=== PATIENT | male | born 1950 | race Caucasian/White ===

== ENCOUNTER 2022-05-07 14:32 | Emergency (ER) | payer OTHER, SELFPAY ==
[2022-05-07 14:47] VITALS: BP 132/86; PULSE 69; RESP 18; TEMP 36.7; O2SAT 98; BMI 26.6
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
--- NOTE | 2022-05-07 15:03 | CT_ITS ---
Final Report Patient: YISSEL MURGUIA Facility:?[facility] Patient ID:?[id number] Site Patient ID:?[id number]. Site :?[id number] Study:?CT Head W/O-05/07/2022 3:22:15 PM Ordering Physician:Elena Stack Final Report: INDICATION: Head injury. TECHNIQUE: CT head without contrast. COMPARISON: None. FINDINGS: CSF spaces: Within normal limits for age. Brain parenchyma and extra-axial spaces: The jane-white differentiation is normal. No sign of mass, hemorrhage, or midline shift. No extra-axial fluid collection. Hyperdensity along the anterior aspect of the falx appears to be due to calcification as opposed to the subdural blood. Skull base and calvarium: Right mastoid effusion. Left mastoid is clear. Paranasal sinuses are clear. The visualized orbits are grossly unremarkable. No skull fractures. Questionable incompletely visualized nondisplaced fracture of the right zygomatic arch. IMPRESSION: 1. No intracranial hemorrhage or evidence of other acute intracranial abnormality. Hyperdensity along the anterior falx appears to be due to calcification as opposed to subdural blood. No midline shift or mass effect. 2. Right mastoid effusion with no discernible skullbase fracture. 3. Questionable incompletely visualized nondisplaced fracture of the right zygomatic arch. Please note that all CT scans at this facility use dose modulation, iterative reconstruction, and/or weight-based dosing when appropriate to reduce radiation dose to as low as reasonably achievable. Dictated by Brandan Pradhan MD @ 05/07/2022 3:53:19 PM (Electronic Signature)
--- NOTE | 2022-05-07 15:13 | ED.NURSE ---
Patient to radiology.
[2022-05-07] MEDS: LACTATED RINGERS 1000 ML IV (16:02)
[2022-05-07 16:25] LABS: Troponin, Point-of-Care* 0.01 ng/ml (0.01-0.04)
[2022-05-07 17:07] LABS: Chloride* 107 mmol/L (96-114); Sodium* 138 mmol/L (135-149)
[2022-05-07 17:10] LABS: Creatinine* 0.8 mg/dL (0.5-1.5); Est. Creatinine Clearance* 69.72
[2022-05-07 17:11] LABS: Blood Urea Nitrogen* 14 mg/dL (7-30); Calcium* 8.8 mg/dL (8.4-10.6); Carbon Dioxide* 25 mmol/L (20-32); Glucose* 108 mg/dL (60-115)
--- NOTE | 2022-05-07 17:25 | ED.NURSE ---
EKG cancelled by
[2022-05-07 17:35] VITALS: BP 118/80; PULSE 60; RESP 18
== END 2022-05-07 17:35 | disposition home or self-care (01) ==
LOC: ED 16:37
PROVIDERS: Emergency Provider Family Medicine; PCP Surgery
DX: S06.0X0A Concussion without loss of consciousness, initial encounter (principal); W22.8XXA Striking against or struck by other objects, initial encounter
CPT/HCPCS: 36415; 70450; 80048; 84484; 99283; 99285; J7120

== ENCOUNTER 2022-07-02 12:49 | Outpatient (RCR) | payer OTHER, MEDICARE, SELFPAY | END 2023-03-04 13:42 | disposition home or self-care (01) | PROVIDERS: PCP Surgery; Visit Provider Surgery | DX: S06.0X0D Concussion without loss of consciousness, subsequent encounter (principal); Z51.89 Encounter for other specified aftercare | CPT/HCPCS: 97162 ==

== ENCOUNTER 2023-01-20 07:54 | Day surgery (SDC) | payer MEDICARE, SELFPAY ==
[2023-01-20] VITALS (22 sets, daily range): BP systolic 110–154; BP diastolic 67–94; PULSE 54–81; RESP 14–18; TEMP 36.2–37.5; O2SAT 93–99; BMI 27.4
[2023-01-20] MEDS: LACTATED RINGERS 1000 ML 1,000 ML 100 ML IV (07:40)
--- NOTE | 2023-01-20 08:21 | CRLHL7_ITS ---
For Patients: As a result of the Cures Act, medical imaging exams and procedure reports are released immediately into your electronic medical record. You may view this report before your referring provider. If you have questions, please contact your health care provider. Indication: POST OP Technique: Two views right knee Findings/Impression: Hardware from a right total knee arthroplasty is in satisfactory position. Bone alignment is normal. No sign of acute fracture. Postop changes are within normal limits. Dictated by Hao Rosario MD @ 01/20/2023 11:41:43 AM (Electronically Signed)
[2023-01-20] MEDS: ACETAMINOPHEN 500 MG TABLET 1000 MG PO ×3 (08:22→23:13)
[2023-01-20] MEDS: OXYCODONE (CR) 10 MG TAB.ER.12H PO (08:23)
[2023-01-20] MEDS: CELECOXIB 200 MG CAPSULE PO (08:23)
[2023-01-20] MEDS: MIDAZOLAM HCL 1 MG/ML inj IVP (09:01)
[2023-01-20] MEDS: fentaNYL 100 MCG/2 ML inj IVP (09:01)
--- NOTE | 2023-01-20 09:20 | SUR.PREOP ---
TIME?OUT:?0900 PT/RN/MDA?VERIFICATION?OF?SURGICAL?SITE,?PROCEDURE,?AND?CONSENT OBTAINED?PRIOR?TO?INVASIVE?PROCEDURE.
--- NOTE | 2023-01-20 10:50 | PM.ORPRC ---
Procedure Note Date of procedure: 01/20/23 Procedure: PREOPERATIVE DIAGNOSIS: 1. Right knee osteoarthritis, primary, severe POSTOPERATIVE DIAGNOSIS: 1. Right knee osteoarthritis, primary, severe PROCEDURE: 1. Right total knee arthroplasty SURGEON: Lizandro Walker MD. LINE RUNNER: Roberto HARPER - Of note, a skilled assistant to the vice president was critical for this case to aid in patient positioning, tissue retraction, limb manipulation/positioning, and closure. ANESTHESIA: Spinal anesthetic IMPLANTS: DePuy J&J all cemented TKA - Attune PS femur size 5 regular, size 6 tibia, 6 mm poly spacer, 38 mm patella TOURNIQUET: 90 min at 300 torr EBL: 50 ml COMPLICATIONS: None evident INDICATIONS: The patient is a pleasant 72-year-old male who has experienced severe right knee pain and difficulty bearing weight. Workup included x-rays which revealed severe osteoarthrosis in the knee. Given the deformity, the dysfunction, and the pain, as well as the failure of nonoperative management, recommendation was made for surgery. FINDINGS: Severe broad full-thickness chondral loss throughout the medial compartment with subchondral dense bone. Significant chondromalacia patellofemoral and to a lesser degree lateral compartment as well. Tricompartmental osteophytes. Moderate effusion upon entering the joint. DESCRIPTION OF PROCEDURE: Following a thorough discussion of risks, benefits, and alternatives consent was obtained and the right knee was marked. The patient was brought to the operating room and placed supine on the operating table. Induction of anesthesia was undertaken. 1 g IV vancomycin and 1 g tranexamic acid was administered within 1 hr of incision preoperatively. Proper time-out was performed identifying proper patient, site, procedure. The operative extremity was prepped and draped in the appropriate sterile fashion using ChloraPrep after the patient was positioned supine with all bony prominences well padded. A longitudinal, anterior, midline skin incision was made starting approximately 3cm proximal to the superior pole of the patella and advanced distal to the tibial tubercle. A median parapatellar arthrotomy was created. A medial subperiosteal sleeve was created with knife, grider elevator and curved osteotome. The retropatellar fatpad was resected and the synovium in the suprapatellar pouch excised to visualize the anterior femoral cortex. Femoral preparation was performed via an intramedullary guide. Step drill allowed access into the femoral canal. The distal cutting guide was placed with 5? of valgus and 10 mm cut on the distal femur. Femur was sized using a anterior referencing guide in 3? of external rotation. This found have a best fit with the sizing noted above. The 4 in 1 cutting block was then placed, and the distal femur shaped accordingly. The box cut was then created and the trial implant inserted to confirm appropriate fit. We turned our attention to the proximal tibia. Extramedullary guide was utilized for cutting with the goal of being 90 degree cut from the mechanical axis of the tibia in the varus/valgus plane utilizing tibial crest as the primary alignment. Initially a 2 mm resection was performed from the medial tibial plateau. Ultimately, balancing was achieved in both flexion and extension in both varus and valgus. The knee was able to achieve full extension as well comfortably. The patella was initially measured and found have a thickness of 24 mm. It was resected back to approximately 14.5 mm. It was sized to be a best fit with as noted above. This was drilled, trial placed. All trials were placed and found to have an excellent stability and balance. At this stage, trial implants were removed, the knee was thoroughly irrigated with normal saline, and the cement was mixed. After irrigation, the knee was thoroughly dried, and cement placed, with the real tibial and femoral implants placed along with the patella. Trial poly spacer was placed and confirmed to have excellent range of motion and full extension, and the real poly spacer opened and inserted. All extra cement was removed, and a 3 min Betadine soak performed. Finally, a final irrigation round with normal saline was performed. Closure performed with 0 Vicryl and #0 Stratafix for the quad tendon/retinaculum. 2-0 Vicryl for the subcutaneous and 4-0 Stratafix for subcuticular closure. Dressings were applied and the patient was awoken from anesthesia after the tourniquet deflated and transferred the PACU in stable condition. A skilled assistant to the vice president was critical for this case to aid in patient positioning, tissue retraction, bone exposure, limb manipulation/positioning, patient safety, and closure. PLAN: 1. Weight bear as tolerated operative extremity. 2. 23 hr perioperative antibiotics. 3. Ice. 4. PT/OT consults for ambulation assistance/mobility education. 5. Social work consult for discharge planning. 6. DVT prophylaxis with at SCDs, Maikel Hose, and chemoprophylaxis with Xarelto or aspirin (history of DVT 2013 following spine surgery)
--- NOTE | 2023-01-20 10:52 | P.NB_ITS ---
Nerve Block Nerve Block Time Seen by Provider: 09:04 Date Seen: 01/20/23 Type of block requested by surgeon for post-operative analgesia: adductor canal Side: right Time out performed: Yes Verification of patient name: Yes Verification of date of : Yes Site marking: site marked Name of person performing procedure: Khang Continuous monitoring Was continuous monitoring of O2 sat, B/P, satellite project site monitor, recorded every 15 minutes?: Yes Procedure Checklist: sterile prep, needles and gloves Ultrasound guided. Images saved: Yes Medications given in 5ml increments after negative aspiration: Ropivicaine %: 0.5 mL: 20 Needle gauge: 20 Decadron (mg): 10 Precedex (mcg): 25 Patient tolerated procedure well: Yes Additional comments: Needle noted adjacent to nerve Block Charges Block Charge (with Pro Fee): Femoral Nerve Use of Ultrasound Machine for Block: Yes- US Guidance/pain block
--- NOTE | 2023-01-20 10:53 | W.PM.NB ---
Nerve Block Nerve Block Time Seen by Provider: 09:04 Date Seen: 01/20/23 Type of block requested by surgeon for post-operative analgesia: geniculars Side: right Time out performed: Yes Verification of patient name: Yes Verification of date of : Yes Site marking: site marked Name of person performing procedure: Khang Continuous monitoring Was continuous monitoring of O2 sat, B/P, quality assurance monitor, recorded every 15 minutes?: Yes Procedure Checklist: sterile prep, needles and gloves Medications given in 5ml increments after negative aspiration: Ropivicaine %: 0.5 mL: 9 Needle gauge: 25 Patient tolerated procedure well: Yes Block Charges Block Charge (with Pro Fee): Genicular Nerve Block Use of Ultrasound Machine for Block: No
--- NOTE | 2023-01-20 10:53 | W.ANESCHARGE ---
Anesthesia Charges Start Date/Time Anesthesia Start Date: 01/20/23 Anesthesia Start Time: 09:12 Stop Date/Time Anesthesia Stop Date: 01/20/23 Anesthesia Stop Time: 11:24 Summary Extremes of Age - Over 70 or under 1: MDA
--- NOTE | 2023-01-20 11:25 | W.ANESCHARGE ---
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
[2023-01-20] MEDS: OXYCODONE 5 MG TABLET PO ×5 (13:29→20:38)
--- NOTE | 2023-01-20 14:41 | PM.IMPN1 ---
Progress Note: A&P Assessment and plan (1) Rheumatoid arthritis: Status: Acute Plan 1. s/p right TKA; pain control+diet per surgery; started on xarelto for DVT ppx 2. Hx of Rheumatoid Arthritis 3. Hx of HTn; hold norvasc, continue losartan with hold parameter 4. Hx of HLD; continue statin 5. Hx of Anya; not on cpap 6. Hx of GERD; continue PPI 7. Hx of DVT 8. Hx of tobacco use disorder Time Spent With Patient Total time spent: 30 Subjective Date Seen: 01/20/23 Interval history: PREOPERATIVE DIAGNOSIS:? 1.? Right knee osteoarthritis, primary, severe POSTOPERATIVE DIAGNOSIS: 1.? Right knee osteoarthritis, primary, severe PROCEDURE: 1.? Right total knee arthroplasty SURGEON:? Lizandro Walker MD. ANESTHESIA:? Spinal anesthetic EBL: ? 50 ml The patient is doing well following surgery He worked with PT denies chest pain, sob, nausea, vomiting post operative pain is controlled Exam Narrative: Exam Narrative: Gen: no acute distress HEENT: NCAT EOMI mmm Neck: Supple CV: RRR normal s1 s2 Lungs: CTAB Abd: Soft,nt, nd Neuro: Alert, oriented, CN grossly intact; nonfocal screening?exam Psych: appropriate affect MSK: age appropriate muscle mass Skin; Warm, dry no rash on face Const: Vital Signs, click to edit/add: Vital Signs - 24 hr 01/20/23 09:19 01/20/23 09:05 01/20/23 11:21 Temperature 99.0 F 97.8 F Pulse Rate 68 68 67 Pulse Rate [Pulse Oximeter] Respiratory Rate 16 14 16 Blood Pressure 151/87 H 140/72 H 110/67 Blood Pressure [Ri ght Arm] Pulse Oximetry 98 97 95 Oxygen Delivery Me thod Room Air Nasal Cannula Nasal Cannula Oxygen Flow Rate 3 3 01/20/23 11:50 01/20/23 11:25 01/20/23 11:30 Temperature 97.6 F Pulse Rate 62 61 63 Pulse Rate [Pulse Oximeter] Respiratory Rate 16 16 18 Blood Pressure 140/72 H 112/70 115/70 Blood Pressure [Ri ght Arm] Pulse Oximetry 98 96 99 Oxygen Delivery Me thod Room Air Nasal Cannula Nasal Cannula Oxygen Flow Rate 3 3 01/20/23 11:35 01/20/23 11:40 01/20/23 11:45 Temperature Pulse Rate 55 L 60 57 L Pulse Rate [Pulse Oximeter] Respiratory Rate 16 16 16 Blood Pressure 117/68 124/76 118/72 Blood Pressure [Ri ght Arm] Pulse Oximetry 98 94 98 Oxygen Delivery Me thod Nasal Cannula Room Air Oxygen Flow Rate 2 01/20/23 11:59 01/20/23 12:15 01/20/23 12:30 Temperature 97.6 F 97.1 F L 97.5 F L Pulse Rate 61 Pulse Rate [Pulse Oximeter] 55 L 54 L Respiratory Rate 14 14 14 Blood Pressure Blood Pressure [Ri ght Arm] 130/70 117/76 133/80 Pulse Oximetry 98 93 Oxygen Delivery Me thod Room Air Room Air Room Air Oxygen Flow Rate 01/20/23 12:45 01/20/23 13:00 01/20/23 13:30 Temperature 97.4 F L 97.9 F 97.8 F Pulse Rate Pulse Rate [Pulse Oximeter] 56 L 59 L 64 Respiratory Rate 14 14 14 Blood Pressure Blood Pressure [Ri ght Arm] 136/71 154/94 H 141/88 H Pulse Oximetry 98 98 99 Oxygen Delivery Me thod Room Air Room Air Room Air Oxygen Flow Rate 01/20/23 14:00 Temperature 97.9 F Pulse Rate Pulse Rate [Pulse Oximeter] 59 L Respiratory Rate 14 Blood Pressure Blood Pressure [Ri ght Arm] 131/80 Pulse Oximetry 97 Oxygen Delivery Me thod Room Air Oxygen Flow Rate
--- NOTE | 2023-01-20 18:17 | PC.NURSE ---
End of Shift: Patient pleasant and cooperative. Patient vitally stable, lungs clear, BS WNL, IV SL and intact. Patient, 1 assist/walker, gb. Patient tolerating regular diet and urinate 975, denied nausea. Patient rates pain 5-6/10, 10 oxy given x2, administering oxy Q2H. Patient ambulated to the toilet and up in chair. Patient Right knee dressing C/D/I.
[2023-01-20] MEDS: SODIUM CHLORIDE 0.9 % (FLUSH) 10 ML SYRINGE 5 ML IVF (19:40)
[2023-01-20] MEDS: ATORVASTATIN CALCIUM 40 MG TABLET PO (20:38)
[2023-01-20] MEDS: SENNOSIDES 1 TAB TABLET 2 TAB PO (20:38)
[2023-01-21] MEDS: OXYCODONE 5 MG TABLET PO ×4 (02:27→10:39)
[2023-01-21 03:00] VITALS: BP 158/84; PULSE 66; RESP 16; TEMP 36.9; O2SAT 96
[2023-01-21] MEDS: ACETAMINOPHEN 500 MG TABLET 1000 MG PO ×2 (04:53→10:39)
--- NOTE | 2023-01-21 05:08 | PC.NURSE ---
Shift note: pt is doing well with 1 person ambulation with walker and GB. Pain has been rated at 6 maximum, denied cough, SOB and N/V. Vitally stable. Alert and oriented. No post operative complication noted. Dressing appears clean and dry.
[2023-01-21 06:54] LABS: Basophils Percent Auto 0.1 % (0.0-3.0); Hematocrit 40.2 % (37.0-53.0); Hemoglobin* 13.7 gm/dL (13.5-17.5); Immature Granulocytes Pct Auto 0.2 %; Lymphocytes Percent Auto 5.4 % (20-44); Mean Corpuscular HGB Conc 34 gm/dL (32-36); Mean Corpuscular Hemoglobin 32 pg (26-34); Mean Corpuscular Volume 93 fL (80-100); Monocytes Percent Auto 5.9 % (0.0-11.0); Neutrophils Percent Auto 88.4 % (42.0-72.0); Platelet Count* 316 K/uL (140-440); RDW Coefficient of Variation % 13.7 % (11.5-15.5); Red Blood Count 4.33 m/uL (4.30-5.90); White Blood Count* 12.14 K/uL (4.50-11.00)
[2023-01-21 07:00] LABS: Slide Review Reflex No
[2023-01-21 07:09] LABS: Sodium* 132 mmol/L (135-149)
[2023-01-21 07:12] LABS: Blood Urea Nitrogen* 18 mg/dL (7-30); Creatinine* 0.8 mg/dL (0.5-1.5); Estimated Glomerular Filt Rate 95 ml/min; Potassium* 3.9 mmol/L (3.6-5.1)
[2023-01-21 07:45] VITALS: O2SAT 98
[2023-01-21 07:48] VITALS: BP 156/77; PULSE 67; RESP 18; TEMP 37; O2SAT 96
[2023-01-21] MEDS: LOSARTAN POTASSIUM 50 MG TABLET 100 MG PO (09:25)
[2023-01-21] MEDS: RIVAROXABAN 10 MG TABLET PO (09:25)
[2023-01-21] MEDS: OMEPRAZOLE 20 MG CAPSULE DR PO (09:25)
[2023-01-21] MEDS: SENNOSIDES 1 TAB TABLET 2 TAB PO (09:25)
--- NOTE | 2023-01-21 09:54 | PM.ORPN ---
Subjective Subjective Date Seen: 01/21/23 Principal diagnosis: Status postop day 1 right total knee arthroplasty Interval history: Patient reports doing well. Poor night of sleep. No acute events over night. Pain is somewhat difficult to manage, but to oxycodone are beneficial. Pain managed with scheduled /PRN medications and ice. DVT prophylaxis rivaroxaban due to history of DVT lower extremity, bilateral knee high Maikel stockings, and SCDs. Denies fevers, chills, aches, N/V, CP, SOB/WHITTEN, tachycardia, or lightheadedness. Ortho Exam Narrative Exam Narrative: -Patient appears comfortable; no apparent acute distress -Alert and oriented times 3 -Operative knee mildly swollen; soft tissues supple; no ecchymosis; no erythematous streaking Warmth appropriate -Surgical dressing clean, dry, intact; no drainage -Bilateral calfs soft; no significant swelling, edema, tenderness, erythema, discoloration, warmth, or palpable cords -2+ DP/PT pulses, intact dermatomes and myotomes distally (5/5 strength) Const Vital Signs, click to edit/add: Vital Signs - 24 hr 01/20/23 11:21 01/20/23 11:50 01/20/23 11:25 Temperature 97.8 F 97.6 F Pulse Rate 67 62 61 Pulse Rate [Pulse Oximeter] Respiratory Rate 16 16 16 Blood Pressure 110/67 140/72 H 112/70 Blood Pressure [Right Arm] Pulse Oximetry 95 98 96 Oxygen Delivery Method Nasal Cannula Room Air Nasal Cannula Oxygen Flow Rate 3 3 01/20/23 11:30 01/20/23 11:35 01/20/23 11:40 Temperature Pulse Rate 63 55 L 60 Pulse Rate [Pulse Oximeter] Respiratory Rate 18 16 16 Blood Pressure 115/70 117/68 124/76 Blood Pressure [Right Arm] Pulse Oximetry 99 98 94 Oxygen Delivery Method Nasal Cannula Nasal Cannula Room Air Oxygen Flow Rate 3 2 01/20/23 11:45 01/20/23 11:59 01/20/23 12:15 Temperature 97.6 F 97.1 F L Pulse Rate 57 L 61 Pulse Rate [Pulse Oximeter] 55 L Respiratory Rate 16 14 14 Blood Pressure 118/72 Blood Pressure [Right Arm] 130/70 117/76 Pulse Oximetry 98 98 Oxygen Delivery Method Room Air Room Air Oxygen Flow Rate 01/20/23 12:30 01/20/23 12:45 01/20/23 13:00 Temperature 97.5 F L 97.4 F L 97.9 F Pulse Rate Pulse Rate [Pulse Oximeter] 54 L 56 L 59 L Respiratory Rate 14 14 14 Blood Pressure Blood Pressure [Right Arm] 133/80 136/71 154/94 H Pulse Oximetry 93 98 98 Oxygen Delivery Method Room Air Room Air Room Air Oxygen Flow Rate 01/20/23 13:30 01/20/23 14:00 01/20/23 15:00 Temperature 97.8 F 97.9 F 98.6 F Pulse Rate Pulse Rate [Pulse Oximeter] 64 59 L 61 Respiratory Rate 14 14 18 Blood Pressure Blood Pressure [Right Arm] 141/88 H 131/80 133/67 Pulse Oximetry 99 97 98 Oxygen Delivery Method Room Air Room Air Room Air Oxygen Flow Rate 2 01/20/23 15:00 01/20/23 15:00 01/20/23 16:00 Temperature 98.8 F Pulse Rate Pulse Rate [Pulse Oximeter] 61 Respiratory Rate 14 14 Blood Pressure Blood Pressure [Right Arm] 127/70 Pulse Oximetry 98 97 Oxygen Delivery Method Room Air Oxygen Flow Rate 01/20/23 17:02 01/20/23 18:09 01/20/23 19:00 Temperature 98.9 F 99.5 F 99.2 F Pulse Rate Pulse Rate [Pulse Oximeter] 65 81 77 Respiratory Rate 14 14 16 Blood Pressure Blood Pressure [Right Arm] 148/77 H 135/82 135/77 Pulse Oximetry 97 96 93 Oxygen Delivery Method Room Air Room Air Room Air Oxygen Flow Rate 01/20/23 23:00 01/20/23 23:00 01/21/23 03:00 Temperature 98.5 F 98.5 F Pulse Rate Pulse Rate [Pulse Oximeter] 71 66 Respiratory Rate 16 16 Blood Pressure Blood Pressure [Right Arm] 144/77 H 158/84 H Pulse Oximetry 93 94 96 Oxygen Delivery Method Room Air Room Air Oxygen Flow Rate 01/21/23 07:48 01/21/23 07:45 Temperature 98.6 F Pulse Rate Pulse Rate [Pulse Oximeter] 67 Respiratory Rate 18 Blood Pressure Blood Pressure [Right Arm] 156/77 H Pulse Oximetry 96 98 Oxygen Delivery Method Room Air Oxygen Flow Rate Assessment and Plan Assessment and plan (1) Status post total right knee replacement: Problem details: TKA 01/20/2023, Dr. Walker Status: Acute Plan - Complete 23 hour perioperative antibiotics. - PT/OT consult for education and assistance. - Social work consult for discharge planning - Prescribed analgesics as needed - will add Vistaril for discharge medication to help with pain. He understands that if he needs to take 2 tablets of oxycodone, he may do so. Would not advise 2 tablets every 4 hours. - DVT prophylaxis: Rivaroxaban, bilateral knee high Maikel Hose stockings and SCDs - Anticipation is for discharge to home with spouse 01/21/2023 if the patient remains medically stable, pain is controlled, and they are safe with mobilization.
--- NOTE | 2023-01-21 09:57 | P.DS_ITS ---
DS: Providers Provider Date Seen: 01/21/23 Date of admission: Med/Surg Recovery 01/20/2023 Primary care physician: Diego Saab MD Consults: 01/20/23 11:58 Consult to Occupational Therapy [CONS] Routine Comment: Reason(s) for OT Consult:: ADLs Prior to Discharge Any Restrictions?:: See Comment Comment: See nursing activity order for any restrictions. Consult to Physical Therapy [CONS] Routine Comment: Ambulate in the torrez today. Reason(s) for PT Consult:: TKA TX Protocol POD#0 Any Restrictions?:: See Comment Comment: See nursing activity order for any restrictions. Consult to Physician [CONS] Routine Comment: Consulting Provider: Hospitalists Has provider been notified: No Consult to [facility] [employer] [CONS] Routine Comment: Reason for Consult:: Discharge Planning Needs Attending Physician on discharge: Lizandro Walker MD Date of Discharge: 01/21/23 DS: Diagnosis Discharge Diagnosis (1) Status post total right knee replacement: Status: Acute Problem details: TKA 01/20/2023, Dr. Walker DS: Summary Hospital Course Hospital Course: The patient has a history of right knee osteoarthritis, primary, severe. After appropriate preoperative evaluation, the patient underwent right total knee arthroplasty. Postoperatively given anticoagulation for deep vein thrombosis prophylaxis. Some pain management difficulties postop day 1. Prescription was provided for Vistaril at discharge to help augment the oxycodone impact on pain. They progressed to PT/OT and were felt ready and prepared for discharge to home with appropriate pain medication and anticoagulation medications - 2 weeks for rock span due to history of DVT, followed by 2 weeks 81 mg aspirin by mouth twice daily. Status at Discharge Functional status at discharge: uses cane/walker Overall status at discharge: patient is progressing back to baseline Time Spent with Patient Time attestation: Total time spent providing and/or coordinating discharge services: Time spent: Less than 30 minutes Exam Const: Vital Signs, click to edit/add: Vital Signs - 24 hr 01/20/23 11:21 01/20/23 11:50 01/20/23 11:25 Temperature 97.8 F 97.6 F Pulse Rate 67 62 61 Pulse Rate [Pulse Oximeter] Respiratory Rate 16 16 16 Blood Pressure 110/67 140/72 H 112/70 Blood Pressure [Ri ght Arm] Pulse Oximetry 95 98 96 Oxygen Delivery Me thod Nasal Cannula Room Air Nasal Cannula Oxygen Flow Rate 3 3 01/20/23 11:30 01/20/23 11:35 01/20/23 11:40 Temperature Pulse Rate 63 55 L 60 Pulse Rate [Pulse Oximeter] Respiratory Rate 18 16 16 Blood Pressure 115/70 117/68 124/76 Blood Pressure [Ri ght Arm] Pulse Oximetry 99 98 94 Oxygen Delivery Me thod Nasal Cannula Nasal Cannula Room Air Oxygen Flow Rate 3 2 01/20/23 11:45 01/20/23 11:59 01/20/23 12:15 Temperature 97.6 F 97.1 F L Pulse Rate 57 L 61 Pulse Rate [Pulse Oximeter] 55 L Respiratory Rate 16 14 14 Blood Pressure 118/72 Blood Pressure [Ri ght Arm] 130/70 117/76 Pulse Oximetry 98 98 Oxygen Delivery Me thod Room Air Room Air Oxygen Flow Rate 01/20/23 12:30 01/20/23 12:45 01/20/23 13:00 Temperature 97.5 F L 97.4 F L 97.9 F Pulse Rate Pulse Rate [Pulse Oximeter] 54 L 56 L 59 L Respiratory Rate 14 14 14 Blood Pressure Blood Pressure [Ri ght Arm] 133/80 136/71 154/94 H Pulse Oximetry 93 98 98 Oxygen Delivery Me thod Room Air Room Air Room Air Oxygen Flow Rate 01/20/23 13:30 01/20/23 14:00 01/20/23 15:00 Temperature 97.8 F 97.9 F 98.6 F Pulse Rate Pulse Rate [Pulse Oximeter] 64 59 L 61 Respiratory Rate 14 14 18 Blood Pressure Blood Pressure [Ri ght Arm] 141/88 H 131/80 133/67 Pulse Oximetry 99 97 98 Oxygen Delivery Me thod Room Air Room Air Room Air Oxygen Flow Rate 2 01/20/23 15:00 01/20/23 15:00 01/20/23 16:00 Temperature 98.8 F Pulse Rate Pulse Rate [Pulse Oximeter] 61 Respiratory Rate 14 14 Blood Pressure Blood Pressure [Ri ght Arm] 127/70 Pulse Oximetry 98 97 Oxygen Delivery Me thod Room Air Oxygen Flow Rate 01/20/23 17:02 01/20/23 18:09 01/20/23 19:00 Temperature 98.9 F 99.5 F 99.2 F Pulse Rate Pulse Rate [Pulse Oximeter] 65 81 77 Respiratory Rate 14 14 16 Blood Pressure Blood Pressure [Ri ght Arm] 148/77 H 135/82 135/77 Pulse Oximetry 97 96 93 Oxygen Delivery Me thod Room Air Room Air Room Air Oxygen Flow Rate 01/20/23 23:00 01/20/23 23:00 01/21/23 03:00 Temperature 98.5 F 98.5 F Pulse Rate Pulse Rate [Pulse Oximeter] 71 66 Respiratory Rate 16 16 Blood Pressure Blood Pressure [Ri ght Arm] 144/77 H 158/84 H Pulse Oximetry 93 94 96 Oxygen Delivery Me thod Room Air Room Air Oxygen Flow Rate 01/21/23 07:48 01/21/23 07:45 Temperature 98.6 F Pulse Rate Pulse Rate [Pulse Oximeter] 67 Respiratory Rate 18 Blood Pressure Blood Pressure [Ri ght Arm] 156/77 H Pulse Oximetry 96 98 Oxygen Delivery Me thod Room Air Oxygen Flow Rate DS: Data Data Completed and Pending Labs on day of discharge: Labs from last 24 hours 01/21/23 01/21/23 05:50 05:50 WBC 12.14 H RBC 4.33 Hgb 13.7 Hct 40.2 MCV 93 MCH 32 MCHC 34 RDW Coeff of Mimi 13.7 Plt Count 316 Neut % (Auto) 88.4 H Lymph % (Auto) 5.4 L [place] % (Auto) 5.9 Eos % (Auto) 0.0 Baso % (Auto) 0.1 Neut # (Auto) 10.70 H Lymph # (Auto) 0.70 L [place] # (Auto) 0.70 Eos # (Auto) 0.00 Baso # (Auto) 0.00 Sodium 132 L Potassium 3.9 BUN 18 Creatinine 0.8 Estimated Creat Clear 66.50 Estimated GFR 95 Discharge Plan Discharge Disposition: Home, Self-Care Discharging Surgeon: Lizandro Walker Follow-Up Appointment: 1 week PO with Diego PACHECO Prescriptions: New aspirin 81 mg tablet,delayed release (DR/EC) 81 mg PO BID Qty: 28 0RF Rx Instructions: Medication to help prevent blood clots postoperatively; take TWICE daily. acetaminophen 500 mg capsule 500 - 1,000 mg PO Q6H MDD 4000mg PRNQty: 100 0RF oxycodone 5 mg tablet 2.5 - 5 mg PO Q4-6H MDD 6 PRN (Reason: pain) Qty: 42 0RF Rx Instructions: Take as needed for postop pain: 2.5mg mild pain, 5mg moderate-severe pain; wean as tolerated. rivaroxaban 10 mg tablet 10 mg PO DAILY Qty: 13 0RF Rx Instructions: Medication for deep vein clot prevention post surgery. Complete this medication before starting Aspirin. sennosides-docusate sodium [Senna-S] 8.6-50 mg tablet 1 - 4 tab-cap PO BID PRN (Reason: constipation) Qty: 60 0RF Rx Instructions: Hold medication if experiencing loose stools. hydroxyzine pamoate [Vistaril] 50 mg capsule 50 - 100 mg PO Q6H Qty: 60 0RF Rx Instructions: This medication helps oxycodone work better; can make you tired. Take as needed by mouth every 6 hours. Continued amlodipine 2.5 mg tablet 2.5 mg PO DAILY epinephrine 0.3 mg/0.3 mL auto-injector 0.3 ml IM Q5-15M PRN Rx Instructions: do not exceed 3 doses per episode diclofenac sodium [Voltaren Arthritis Pain] 1 % gel 2 g topical QID fluticasone propionate [Allergy Relief (fluticasone)] 50 mcg/actuation spray,suspension 1 spray intranasal DAILY Rx Instructions: administer into each nostril triamcinolone acetonide 0.1 % ointment 1 applic topical BID PRN omeprazole 20 mg capsule,delayed release(DR/EC) 20 mg PO DAILY losartan 100 mg tablet 100 mg PO DAILY atorvastatin 40 mg tablet 40 mg PO HS nitroglycerin 0.4 mg tablet, sublingual 0.4 mg sublingual Q5M PRN Rx Instructions: do not exceed 3 doses per episode No Action aspirin [Adult Low Dose Aspirin] 81 mg tablet,delayed release (DR/EC) 81 mg PO DAILY Activity Level: Activity as Tolerated, Weight Bearing as Tolerated, Use Cane and Use Walker Activity Detail: Wound: ?Do not remove original dressing; we will remove this at first postop visit in 1 week. Only remove dressing if integrity is in question. ?No immersing wound in water; showering okay; light scrub with your hand and body soap, rinse, dab dry ?Sutures are under the skin, will dissolve; allow surgical glue to come off naturally; do not scrub the wound or apply ointments/lotions ?Call our office with any redness that streaks, excessive drainage from the wound, or wound gapping. Ice/Elevate: ?Ice as needed for swelling and discomfort (cryocuff or ice pack); elevate frequently above the heart STEFFANY socks: ?Wear for 1 month, remove for 1 hour 3 times per day ?These are frustrating to take on/off, but are important for blood clot prevention for 1 month after surgery Blood Clot Prevention (DVT): ?Medication: xarelto once daily for two weeks, followed by 81 mg aspirin by mouth for 2 weeks. Driving: ?Do not drive while taking narcotic pain medication ?Anticipate 4-6 weeks no driving if operative leg is driving leg Dental: ?No elective dental work for 6 months post-op. If there is an urgent/emergent dental need, contact our office for an antibiotic prescription. Smoking/Alcohol: ?Do not smoke; do no drink alcohol especially when taking postoperative oral narcotic medication Seek Care from you Primary Care Provider if you experience the following issues in the postoperative phase and beyond: ?Bacterial infections such as: pneumonia, bacterial skin infection (cellulitis), UTI, high fever, chills unrelated to the operative body part - call your primary care physician urgently for treatment in hopes to protect your health and the metal implant. Referrals: ?PT, OT per patient preference - evaluate treat total knee arthroplasty protocol (gait training, ROM, ADLs) Follow up: ?Ortho surgeon follow-up in 6 weeks; repeat radiographs three views operative knee ?JUNIOR visit in 1 week *If there are any acute concerns regarding your surgery, please call our orthopedic clinic ([phone]) Discharge Diet: Regular Patient Instructions: Acetaminophen (By mouth), Aspirin (By mouth), Hydroxyzine (By mouth) (Vistaril), Oxycodone, Rapid Release (By mouth), Rivaroxaban (By mouth) (Xarelto, Xarelto Starter Pack), Senna (By mouth) (Sen, Senna-lax), Surgical Site Infections (DC), Knee Replacement (DC) Forms: Work/School Release Follow-up: Diego Saab MD [Primary Care Provider] - Diego Duran PA-C [Physician Reimbursement Consultant] - 01/30/23 10:30 am (At the [facility].) Discharge Orders: Discharge Order (Routine); Ordered 01/21/23 Ordered By: Diego Duran
[2023-01-21 10:30] VITALS: BP 140/72; PULSE 61; RESP 18; TEMP 37
--- NOTE | 2023-01-21 11:13 | PC.SOCIAL ---
Met with pt and pt's in pt's room to discuss discharge plans. Pt and pt's informed that everything is set up at home for pt to return home. Pt is not in need of any service referrals. Pt is feeling well today and states he is ready to go home. Informed that pt can reach out to social work if anything is needed. Social work will follow up as necessary.
--- NOTE | 2023-01-21 12:08 | PC.NURSE ---
shift note: pt up sba/walker. pt rating pain 8/10 in rt knee. pt medicated with 10 mg oxycodone with scheduled tylenol with relief of pain to 4/10. Pt medicated with oxycodone prior to dc. cms intact. PP+ bilat. Reviewed dc instructions and s/s of dvt. pt given second pair of teds at dc. dc'd iv intact. Copies of dc instructions given to pt at dc. Belongings reviewed and sent with pt at dc.
== END 2023-01-21 11:30 | disposition home or self-care (01) ==
LOC: OR 07:55 → MEDSURG 07:57
PROVIDERS: PCP Surgery; Visit Provider Orthopaedic Surgery Sports Medicine
PROC: (CPT 27447; principal; 2023-01-20 09:30)
DX: M17.11 Unilateral primary osteoarthritis, right knee (principal); G89.18 Other acute postprocedural pain; M06.9 Rheumatoid arthritis, unspecified; I10 Essential (primary) hypertension; G47.33 Obstructive sleep apnea (adult) (pediatric); Z86.718 Personal history of other venous thrombosis and embolism
CPT/HCPCS: 27447; 01402; 36415; 64447; 64454; 73560; 76942; 82565; 84132; 84295; 84520; 85025; 97110; 97116; 97161; 97165; 97530; 97535; 99100; A9270; C1776; J1100; J2250; J2405; J2704; J2795; J3010; J3370; J7050; J7120

== ENCOUNTER 2023-01-25 18:08 | Emergency (ER) | payer MEDICARE, SELFPAY ==
[2023-01-25 18:14] VITALS: BP 136/67; PULSE 97; RESP 16; TEMP 36.8; O2SAT 97; BMI 27.4
--- NOTE | 2023-01-25 18:53 | CRLHL7_ITS ---
For Patients: As a result of the Century Cures Act, medical imaging exams and procedure reports are released immediately into your electronic medical record. You may view this report before your referring provider. If you have questions, please contact your health care provider. INDICATION: Right leg pain. Recent right TKA. TECHNIQUE: Ultrasound venous duplex lower right extremity. Compression venous exam was performed using jane-scale, color Doppler, and spectral Doppler imaging. COMPARISON: None FINDINGS: The right common femoral, deep femoral, superficial femoral, popliteal, posterior tibial and greater saphenous and the contralateral left common femoral veins are fully compressible with normal color Doppler blood flow. IMPRESSION: Normal right lower extremity venous ultrasound, no sign of deep venous thrombosis. Dictated by John Robles MD @ 01/25/2023 8:46:15 PM (Electronically Signed)
[2023-01-25 20:08] VITALS: BP 154/73; PULSE 70; RESP 18; O2SAT 98
--- NOTE | 2023-01-25 20:11 | ED_ITS ---
HPI - General Adult General Date Seen: 01/25/23 Chief complaint: Extremity Pain/Injury, Lower Stated complaint: Surgery on Friday, suspects a bloodclot Time Seen by Provider: 01/25/23 18:12 Source: patient Mode of arrival: ambulatory Limitations: no limitations History of Present Illness HPI narrative: Patient is a 72-year-old male who underwent right TKA on January 20, discharged on the . He is taking Xarelto secondary to a prior history of DVT. He comes in noting worsening pain in the right leg since yesterday. Will really concerned them is an area of darkish discoloration behind the right knee. He has not had significant redness, no fevers. He notes that he has had a ?bubble in his chest sometimes when he swallows. He wonders is this is related to the leg symptoms. He has had some trouble with constipation but feels that is improving with the stool regimen that he is on. Not had any vomiting. He has not had pleuritic chest pain or shortness of breath. No fevers. He does take Prilosec for acid reflux. Related Data Home Medications Medication Instructions Recorded Confirmed aspirin 81 mg tablet,delayed 81 mg PO DAILY 05/07/22 01/17/23 release (Adult Low Dose Aspirin) atorvastatin 40 mg tablet 40 mg PO HS 05/07/22 01/17/23 losartan 100 mg tablet 100 mg PO DAILY 05/07/22 01/17/23 nitroglycerin 0.4 mg sublingual 0.4 mg sublingual Q5M PRN 05/07/22 01/17/23 tablet omeprazole 20 mg capsule,delayed 20 mg PO DAILY 05/07/22 01/17/23 release amlodipine 2.5 mg tablet 2.5 mg PO DAILY 01/17/23 01/17/23 diclofenac sodium 1 % topical gel 2 g topical QID 01/17/23 01/17/23 (Voltaren Arthritis Pain) epinephrine 0.3 mg/0.3 mL 0.3 ml IM Q5-15M PRN 01/17/23 01/17/23 injection, auto-injector fluticasone propionate 50 1 spray intranasal DAILY 01/17/23 01/17/23 mcg/actuation nasal spray,suspension (Allergy Relief (fluticasone)) triamcinolone acetonide 0.1 % 1 applic topical BID PRN 01/17/23 01/17/23 topical ointment Previous Rx's Medication Instructions Recorded acetaminophen 500 mg capsule 500 - 1,000 mg PO Q6H PRN #100 caps 01/20/23 aspirin 81 mg tablet,delayed 81 mg PO BID #28 tabs 01/20/23 release oxycodone 5 mg tablet 2.5 - 5 mg PO Q4-6H PRN pain #42 01/20/23 tabs rivaroxaban 10 mg tablet 10 mg PO DAILY #13 tabs 01/20/23 sennosides 8.6 mg-docusate sodium 1 - 4 tab-cap PO BID PRN 01/20/23 50 mg tablet (Senna-S) constipation #60 tabs hydroxyzine pamoate 50 mg capsule 50 - 100 mg PO Q6H #60 caps 01/21/23 (Vistaril) Allergies Allergy/AdvReac Type Severity Reaction Status Date / Time bee venom protein (honey bee) Allergy Severe Anaphylaxis Verified 01/25/23 18:17 Cephalosporins Allergy Intermediate Hives Verified 01/25/23 18:17 codeine AdvReac Mild Nausea Verified 01/25/23 18:17 lisinopril AdvReac Mild Cough Verified 01/25/23 18:17 Review of Systems Status of ROS: Reports: 6 or more systems reviewed and unremarkable except as noted in History and below [facility] Medical History Allergic angioedema Depression GERD (gastroesophageal reflux disease) History of DVT (deep vein thrombosis) History of tuberculosis Hypertension Sleep apnea Surgical History H/O ankle fusion (02/13/09) History of arthroscopy of right knee (01/02/22) History of back surgery (~2014) Status post arthroscopy of left shoulder (11/21/06) Status post medial meniscectomy of right knee (06/15/10) Status post total right knee replacement (01/20/23) Family History Mother Diabetes AA (aortic aneurysm) Heart problem High blood pressure Pacemaker Father AA (aortic aneurysm) Heart problem High blood pressure Pacemaker Brother H/O angioplasty Social History Smoking Status: Current some day smoker What tobacco products do you use: cigarettes Smoking quit date/years: >15 years ago Do you use any of these nicotine containing products: None Second hand tobacco smoke exposure: No How often do you have a drink containing alcohol: 2-3 times a week Alcohol type: beer How many standard drinks containing alcohol do you have on a typical day: 3 or 4 How often do you have six or more drinks on one occasion: Never AUDIT-C Alcohol total score: 4 Non-prescribed substance use: denies use Caffeine: Yes (coffee, 2 cups/AM) service: Yes Exam Narrative: Exam Narrative: Vital signs as noted above. In general, an alert, nontoxic elderly male. Breathing easily. Head: Normocephalic, atraumatic. Eyes: Pupils are equal reactive. Extraocular movements are full. Conjunctivae are normal. ENT: Mucous membranes are moist. Neck: Supple without lymphadenopathy. Heart: Regular rate and rhythm. No murmur or rub. Lungs: Clear bilaterally. No increased work of breathing, crackles or wheezes. Abdomen: Soft and nontender. No organomegaly. Extremities: The right leg is diffusely edematous relative to the left. Nj rgical incision is underneath the dressing and was not specifically examined but there is no significant erythema noted around the dressing. There is purplish bruising noted on the posterior knee, consistent with postoperative bleeding settling out due to gravity. Distal pulses intact. No significant distal erythema. No calf tenderness. Compartments are soft. Neurologic: Patient is alert and oriented to person and place. Speech is fluent. Face is symmetric. Moves all extremities equally. Affect: Normal. Skin: Warm and dry. Well perfused. Const: Vital Signs, click to edit/add: Vital Signs - 24 hr 01/25/23 18:14 01/25/23 20:08 Temperature 98.3 F Pulse Rate [Pulse Oximeter] 97 70 Respiratory Rate 16 18 Blood Pressure [Ri ght Upper Arm] 136/67 154/73 H Pulse Oximetry 97 98 Oxygen Delivery Me thod Room Air Room Air Documenting provider has reviewed patient's vital signs: yes Course Course Hospital Course: Patient and his have significant anxiety about possible DVT so we will go ahead and get an ultrasound to evaluate for that. Did discuss with him that the area there noting behind the knee is very consistent with bruising to settling out and I do not think is related to DVT specifically. With regard to the bubble sensation he is getting when he swallows sometimes, this sounds most consistent with something related to gastroesophageal reflux and I do not think is specifically connected to his right leg symptoms. Can follow this up with primary care if it continues after he is improved from his postop period. Right lower extremity Doppler is negative for DVT. I have reviewed this with the patient and his . Recommend continuation of current cares. Follow up with Orthopedics, return for severe symptoms. Vital Signs Vital signs: Initial Vital Signs Temperature 98.3 F 01/25/23 18:14 Temperature Source Temporal Artery Scan 01/25/23 18:14 Pulse Rate 97 01/25/23 18:14 Pulse Rhythm 01/25/23 18:14 Pulse Strength 3+ Normal 01/25/23 18:14 Respiratory Rate 16 01/25/23 18:14 Blood Pressure 136/67 01/25/23 18:14 Blood Pressure Mean 90 01/25/23 18:14 Blood Pressure Position Sitting 01/25/23 18:14 Pulse Oximetry 97 01/25/23 18:14 Oxygen Delivery Method 01/25/23 18:14 Vital Signs Temperature 98.3 F 01/25/23 18:14 Pulse Rate 97 01/25/23 18:14 Respiratory Rate 16 01/25/23 18:14 Blood Pressure 136/67 01/25/23 18:14 Pulse Oximetry 97 01/25/23 18:14 Oxygen Delivery Method 01/25/23 18:14 Temperature 98.3 F 01/25/23 18:14 Pulse Rate 70 01/25/23 20:08 Respiratory Rate 18 01/25/23 20:08 Blood Pressure 154/73 H 01/25/23 20:08 Pulse Oximetry 98 01/25/23 20:08 Oxygen Delivery Method 01/25/23 20:08 Discharge Plan Discharge Clinical Impression: Observation and evaluation for suspected conditions not found Patient Disposition: Home, Self-Care Condition: Stable Additional Instructions: Continue with current activities in medications, orthopedic follow-up as planned. Regarding your swallowing symptoms, if these do not improve with time, discussed with primary care. Prescriptions: No Action amlodipine 2.5 mg tablet 2.5 mg PO DAILY epinephrine 0.3 mg/0.3 mL auto-injector 0.3 ml IM Q5-15M PRN Rx Instructions: do not exceed 3 doses per episode diclofenac sodium [Voltaren Arthritis Pain] 1 % gel 2 g topical QID fluticasone propionate [Allergy Relief (fluticasone)] 50 mcg/actuation spray,suspension 1 spray intranasal DAILY Rx Instructions: administer into each nostril triamcinolone acetonide 0.1 % ointment 1 applic topical BID PRN aspirin 81 mg tablet,delayed release (DR/EC) 81 mg PO BID Qty: 28 0RF Rx Instructions: Medication to help prevent blood clots postoperatively; take TWICE daily. acetaminophen 500 mg capsule 500 - 1,000 mg PO Q6H MDD 4000mg PRNQty: 100 0RF oxycodone 5 mg tablet 2.5 - 5 mg PO Q4-6H MDD 6 PRN (Reason: pain) Qty: 42 0RF Rx Instructions: Take as needed for postop pain: 2.5mg mild pain, 5mg moderate-severe pain; wean as tolerated. rivaroxaban 10 mg tablet 10 mg PO DAILY Qty: 13 0RF Rx Instructions: Medication for deep vein clot prevention post surgery. Complete this medication before starting Aspirin. sennosides-docusate sodium [Senna-S] 8.6-50 mg tablet 1 - 4 tab-cap PO BID PRN (Reason: constipation) Qty: 60 0RF Rx Instructions: Hold medication if experiencing loose stools. hydroxyzine pamoate [Vistaril] 50 mg capsule 50 - 100 mg PO Q6H Qty: 60 0RF Rx Instructions: This medication helps oxycodone work better; can make you tired. Take as needed by mouth every 6 hours. omeprazole 20 mg capsule,delayed release(DR/EC) 20 mg PO DAILY aspirin [Adult Low Dose Aspirin] 81 mg tablet,delayed release (DR/EC) 81 mg PO DAILY losartan 100 mg tablet 100 mg PO DAILY atorvastatin 40 mg tablet 40 mg PO HS nitroglycerin 0.4 mg tablet, sublingual 0.4 mg sublingual Q5M PRN Rx Instructions: do not exceed 3 doses per episode Follow Up/Referrals: Diego Saab MD [Primary Care Provider] - Stand Alone Forms: [employer] Info Instructions
== END 2023-01-25 21:23 | disposition home or self-care (01) ==
PROVIDERS: Emergency Provider Emergency Medicine; PCP Surgery
DX: Z71.1 Person with feared health complaint in whom no diagnosis is made (principal)
CPT/HCPCS: 93971; 99283; 99284

== ENCOUNTER 2025-10-28 09:01 | Outpatient (CLI) | payer MEDICARE, SELFPAY ==
--- NOTE | 2025-10-28 10:15 | P.ANES_ITS ---
Anesthesia Charges Start Date/Time Anesthesia Start Date: 10/28/25 Anesthesia Start Time: 09:46 Stop Date/Time Anesthesia Stop Date: 10/28/25 Anesthesia Stop Time: 10:11 Summary Extremes of Age - Over 70 or under 1: DIRECTOR COMPLIANCE Coding CPT Codes CPT Codes: PREET LWR INTST NDSC NOS - 26346 ([id number]) P2 - PATIENT W/MILD SYST DISEASE, QK - MEAT LUGGER 2-4 CNCRNT ANEGiulia PROC, QX - DIRECTOR COMPLIANCE SVC W/ MD MED DIRECTION Additional Codes: Summary - Extremes of Age - Over 70 or under 1: DIRECTOR COMPLIANCE ([id number])
--- NOTE | 2025-10-28 10:15 | W.ANESCHARGE ---
Anesthesia Charges Start Date/Time Anesthesia Start Date: 10/28/25 Anesthesia Start Time: 09:46 Stop Date/Time Anesthesia Stop Date: 10/28/25 Anesthesia Stop Time: 10:11 Summary Extremes of Age - Over 70 or under 1: FOLDING MACHINE SETTER Coding CPT Codes CPT Codes: PREET LWR INTST NDSC NOS - 97435 ([id number]) P2 - PATIENT W/MILD SYST DISEASE, QK - IMAGING TECHNICIAN 2-4 CNCRNT ANEGiulia PROC, QX - FOLDING MACHINE SETTER SVC W/ MD MED DIRECTION Additional Codes: Summary - Extremes of Age - Over 70 or under 1: FOLDING MACHINE SETTER ([id number])
--- NOTE | 2025-10-28 11:46 | W.ANESCHARGE ---
Anesthesia Charges Start Date/Time Anesthesia Start Date: 10/28/25 Anesthesia Start Time: 09:46 Stop Date/Time Anesthesia Stop Date: 10/28/25 Anesthesia Stop Time: 10:11 Summary Extremes of Age - Over 70 or under 1: MDA Coding CPT Codes CPT Codes: ANES LWR INTST NDSC NOS - 59027 ([id number]) QK - INSPECTION SUPERVISOR 2-4 CNCRNT ANES PROC, QX - LINE INSTALLATION SUPERVISOR SVC W/ MD MED DIRECTION, P2 - PATIENT W/MILD SYST DISEASE Additional Codes: Summary - Extremes of Age - Over 70 or under 1: MDA ([id number])
== END 2025-10-28 09:02 | disposition home or self-care (01) ==
LOC: OP CLINIC 09:01
PROVIDERS: PCP Surgery; Visit Provider Internal Medicine Gastroenterology
DX: Z12.11 Encounter for screening for malignant neoplasm of colon (principal); D12.0 Benign neoplasm of cecum; D12.3 Benign neoplasm of transverse colon
CPT/HCPCS: 00811; 00812; 45385; 99100; J2704